=== PATIENT | female | born 1975 | race Caucasian/White ===

== ENCOUNTER 2018-03-13 15:48 | Emergency (ER) | payer BC, SELFPAY ==
[2018-03-13] MEDS ORDERED: Morphine 10 MG/ML VIAL ONE (16:19)
== END 2018-03-13 16:40 | disposition home or self-care (01) ==
LOC: BURERS 15:48
DX: S83.92XA Sprain of unspecified site of left knee, initial encounter (principal); F31.9 Bipolar disorder, unspecified; F41.9 Anxiety disorder, unspecified; F17.210 Nicotine dependence, cigarettes, uncomplicated; Z79.891 Long term (current) use of opiate analgesic; Z79.899 Other long term (current) drug therapy; X50.1XXA Overexertion from prolonged static or awkward postures, initial encounter
CPT/HCPCS: 96372; J2270

== ENCOUNTER 2018-07-20 20:59 | Emergency (ER) | payer MEDICARE, MEDICAID ==
--- NOTE | 2018-07-20 21:58 | RAD ---
LEFT KNEE: 07/20/18 Four views. HISTORY: Trauma. There are moderate degenerative changes present. Medial joint narrowing. Hypertrophic spurring from t he condyles and patella. No acute fracture identified. No evidence of joint effusion. IMPRESSION: Moderate degenerative changes. POS: [facility]
--- NOTE | 2018-07-20 22:12 | RAD ---
RIGHT KNEE: 07/20/18 Three views. HISTORY: Trauma. Moderate degenerative changes. Spurring from the femoral condyles and tibial condyles. Spurring at th e patellofemoral joint. Anchors are in place indicating prior cruciate repair procedure. No evidence of joint effusion. No evidence of fracture. IMPRESSION: Moderately severe degenerative change. POS: [facility]
== END 2018-07-20 22:15 | disposition home or self-care (01) ==
LOC: BURERS 20:59
DX: S80.02XA Contusion of left knee, initial encounter (principal); S80.01XA Contusion of right knee, initial encounter; S70.12XA Contusion of left thigh, initial encounter; E78.00 Pure hypercholesterolemia, unspecified; F31.9 Bipolar disorder, unspecified; F17.210 Nicotine dependence, cigarettes, uncomplicated; Z79.899 Other long term (current) drug therapy; W01.0XXA Fall on same level from slipping, tripping and stumbling without subsequent striking against object, initial encounter

== ENCOUNTER 2019-12-13 23:34 | Emergency (ER) | payer MEDICARE, MEDICAID ==
[2019-12-14] MEDS ORDERED: Dexamethasone 4 MG TAB ONE (00:17)
[2019-12-14] MEDS ORDERED: Bicillin LA 1.2 MILLION UNITS/2 ML SYRINGE ONE (00:18)
== END 2019-12-14 00:50 | disposition home or self-care (01) ==
LOC: BURERS 23:34
DX: J02.0 Streptococcal pharyngitis (principal); E78.00 Pure hypercholesterolemia, unspecified; F41.9 Anxiety disorder, unspecified; F17.210 Nicotine dependence, cigarettes, uncomplicated; F31.9 Bipolar disorder, unspecified; Z79.899 Other long term (current) drug therapy
CPT/HCPCS: 87430; 96372; 99283; J0561; J8540